=== PATIENT | female | born 1955 | race Caucasian/White ===

== ENCOUNTER 2025-04-19 08:07 | Day surgery (SDC) | payer MEDICARE, BC ==
[~2025-04-19] VITALS: Ht 165.1 cm; Wt 78.9 kg
[2025-04-19] VITALS (7 sets, daily range): BP systolic 138–167; BP diastolic 58–76; PULSE 61–80; RESP 14–16; TEMP 97.3; O2SAT 92–96
[2025-04-19] MEDS ORDERED: ROSU20TA98 PO (08:43)
[2025-04-19] MEDS ORDERED: CARV6.2553 PO (08:43)
[2025-04-19] MEDS ORDERED: LITH450T2 PO (08:43)
[2025-04-19] MEDS ORDERED: FLEC100T35 PO (08:43)
[2025-04-19] MEDS ORDERED: AMLO5TAB16 PO (08:43)
[2025-04-19] MEDS ORDERED: SEMA1PEN3 (08:43)
--- NOTE | 2025-04-19 08:46 | ELECTROCARDIOGRAPH REPORT ---
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 Chelsea Ascencio Measurements Intervals [place] Rate: 63 P: 99 MI: 133 QRS: 150 QRSD: 176 T: 268 QT: 421 QTc: 431 Interpretive Statements Atrial-ventricular dual-paced rhythm No further analysis attempted due to paced rhythm Electronically Signed On 04-22-2025 7:11:[address] Chelsea Ascencio Please click the below link to view image of tracing.
[2025-04-19] MEDS ORDERED: ceFAZolin 2gm/dext,iso 50mL 50 ML IV ONE (08:53)
[2025-04-19] MEDS ORDERED: VANCOMYCIN 1,500MG inj. 1,500 MG in normal saline 500ml IV soln 300 ML IV ONE (08:54)
[2025-04-19] MEDS: normal saline 1000ml 1,000 ML IV SCH (09:44)
[2025-04-19] MEDS: VANCOMYCIN/H2O 1.5g/300mL PB 300 ML IV ONE (09:44)
[2025-04-19 09:48] LABS: CREATININE 1.06 MG/DL (0.40-0.90); TOTAL CARBON DIOXIDE 26.9 MMOL/L (24-32); eCRCL 44 ML/MIN; eGFR 51 ML/MIN
[2025-04-19 09:50] LABS: INR 1.1 INR
[2025-04-19 09:53] LABS: MEAN PLATELET VOLUME 7.9 FL (7.4-10.4); RED CELL DISTRIBUTION WIDTH 13.5 % (11.5-14.5)
[2025-04-19] MEDS ORDERED: midazolam 1 mg/ML 2ml injection ONE ×2 (11:47→12:40)
[2025-04-19] MEDS ORDERED: vancomycin 1,000mg inj ONE (11:48)
[2025-04-19] MEDS ORDERED: fentaNYL/PF 50MCG/1 ML 2ML syringe ONE ×2 (11:48→12:47)
[2025-04-19] MEDS ORDERED: LIDOCAINE 2%/EPI 1:100,000 inj. Multi-dose 20 ML VIAL ONE (11:48)
[2025-04-19] MEDS ORDERED: ondansetron/PF 4mg/2ml inj ONE (13:29)
--- NOTE | 2025-04-23 06:20 | CARDIOLOGY REPORT ---
DATE OF SERVICE: 04/19/2025 DICTATING PHYSICIAN: AJ VIDAL DO PROCEDURES PERFORMED: * Removal of existing pacemaker pulse generator. * Pacemaker pocket revision. * Implant of new pacemaker pulse generator. PREOPERATIVE DIAGNOSES: * History of cardiomyopathy associated with left bundle branch block. * Status post biventricular pacemaker. * A pacemaker pulse generator at the elective replacement interval. POSTOPERATIVE DIAGNOSES: * History of cardiomyopathy associated with left bundle branch block. * Status post biventricular pacemaker. * A pacemaker pulse generator at the elective replacement interval. CLINICAL HISTORY: This patient has previously developed cardiomyopathy in association with a left bundle branch block. Her function has completely returned to normal with resynchronization. The generator is now at the elective replacement interval. ANESTHESIA: Conscious sedation with local to skin. DEVICE REMOVED: Medtronic pulse generator model number W1TR01 and serial number [id number]. EXISTING ELECTRODES: Left ventricle 4194, serial number [id number]; right ventricular electrode model number 4076 and serial number [id number]. Atrial electrode is a Medtronic [id number] and serial number [id number]. DEVICES IMPLANTED: Generator, the generator implanted is a Medtronic device model number W1TR03 and serial number [id number]. DESCRIPTION OF PROCEDURE: The patient was sedated with fentanyl and Versed. She was then prepared and draped in the usual manner. Pacemaker pocket was then anesthetized with 1% lidocaine containing a 1:100 mixture of epinephrine. The pocket was opened by incising along the scar line. The generator was removed. The pocket was enlarged in an inferolateral direction and the new generator was attached to the existing electrodes and placed in the pocket contained within a Tyrex pouch. The pocket was irrigated with a vancomycin antibiotic solution. The subcutaneous layer was closed with 3-0 Vicryl and the skin was approximated with 4-0 Monocryl. ESTIMATED BLOOD LOSS: Nil . PLAN: Initial Livan parameters were maintained as with the old device. AJ VIDAL DO TID: [id number] RECEIPT: [id number] /[facility]
== END 2025-04-19 15:40 | disposition home or self-care (01) ==
LOC: SSTAY O 08:07
PROVIDERS: ATTEND Internal Medicine Cardiovascular Disease
DX: Z45.010 Encounter for checking and testing of cardiac pacemaker pulse generator [battery] (principal); I42.9 Cardiomyopathy, unspecified; I44.7 Left bundle-branch block, unspecified; I10 Essential (primary) hypertension; E11.9 Type 2 diabetes mellitus without complications; I48.0 Paroxysmal atrial fibrillation; E78.5 Hyperlipidemia, unspecified; F31.9 Bipolar disorder, unspecified; Z79.899 Other long term (current) drug therapy; Z90.49 Acquired absence of other specified parts of digestive tract; Z90.710 Acquired absence of both cervix and uterus; Z98.890 Other specified postprocedural states; Z88.8 Allergy status to other drugs, medicaments and biological substances
CPT/HCPCS: 33229; 36415; 80048; 82948; 85025; 85610; 93005; 99152; 99153; A4615; C2621; J1171; J2250; J2405; J3010; J3373; J3375; J7030; Z7610